=== PATIENT | male | born 1970 | race Caucasian/White ===

== ENCOUNTER 2021-12-24 10:05 | Emergency (ER) | payer OTHER, SELFPAY ==
[2021-12-24] VITALS (17 sets, daily range): BP systolic 143–172; BP diastolic 70–91; PULSE 73–97; RESP 14–23; TEMP 36.2; O2SAT 97–100; BMI 41.0
--- NOTE | 2021-12-24 10:41 | ED_ITS ---
HPI - General Adult General Chief complaint: Shortness of Breath/Dyspnea Stated complaint: sob Time Seen by Provider: 12/24/21 10:35 Source: patient Mode of arrival: Ambulatory Limitations: no limitations History of Present Illness HPI narrative: Patient is a 51-year-old male. Approximately 8 years ago he was diagnosed with a right lower extremity DVT and subsequent pulmonary embolism. He was on Lovenox and Coumadin for period of time but is now just on aspirin. He states that there was not a specific etiology for the blood clot. Has not had any issues with it since then. No underlying lung pathology. He states that last evening he started to develop left-sided chest discomfort. Had did radiate to his back. He did have quite a bit of burping. He thought that maybe this helped the symptoms somewhat. It was worse when he was lying down. Not worse with palpation. He went to an outside walk-in clinic and given his history was sent to the emergency department for further evaluation. He is having some shortness of breath. He states this feels different than his prior DVT. Related Data Allergies Allergy/AdvReac Type Severity Reaction Status Date / Time lorazepam [LORAZEPAM] AdvReac Severe STATES Verified 12/24/21 10:43 THAT IT CAUSED DECREASE IN BREATHING Review of Systems Constitutional Constitutional: Denies fever(s) Cardiovascular Cardiovascular: Reports as per HPI and Reports system reviewed and no additional complaints, except as documented Respiratory Respiratory: Reports as per HPI and Reports system reviewed and no additional complaints, except as documented Gastrointestinal Gastrointestinal: Denies abdominal pain, Reports belching, Denies change in bowel habits and Denies vomiting Musculoskeletal Musculoskeletal: Reports system reviewed and no additional complaints, except as documented Integumentary/Breasts Skin/Breast: Reports system reviewed and no additional complaints, except as documented Neurologic Neurologic: Reports system reviewed and no additional complaints, except as documented Hematologic/Lymphatic On Anticoagulants: No Patient History Medical History DVT (deep venous thrombosis) Pulmonary embolism Social History Smoking Status: Never smoker Exam Initial Vital Signs Initial Vital Signs: Vital Signs Pulse Rate 81 12/24/21 10:22 Respiratory Rate 16 12/24/21 10:22 Blood Pressure 164/91 H 12/24/21 10:22 Pulse Oximetry 100 12/24/21 10:22 [facility] Head: normal to inspection and normocephalic Resp Effort & Inspection: normal respiratory effort Auscultation: clear to auscultation bilaterally Cardio Rate: regular rate Rhythm: regular rhythm GI Inspection: normal to inspection Palpation: No tender Skin General: no rashes or lesions noted Neuro General: patient alert, patient awake and moves all extremities Extrem General: normal to inspection and capillary refill normal Psych Appearance: grossly normal and well kempt Course Orders Ordered: ED Orders 12/24/21 10:15 Measure peak expiratory flow ONCE RT Consult Eval and Treat Now 12/24/21 10:30 Complete Blood Count AUTO DIFF Stat Comprehensive Metabolic Panel Stat Lactate (Lactic Acid) Stat NT-proBNP (BNP-Adult 18+) Stat 12/24/21 10:31 EKG-12 Lead Stat 12/24/21 11:54 CT angio chest PE protocol Stat 12/24/21 12:11 COVID19 -Nasal swab/Pre-Proc Stat 12/24/21 12:27 Troponin & CK Cardiac Panel Stat 12/24/21 13:06 Partial Thromboplastin Time Stat 12/24/21 14:05 EC echo doppler complete Stat 12/24/21 19:00 PTT [Partial Thromboplastin Time] Q6H 12/25/21 01:00 PTT [Partial Thromboplastin Time] Q6H 12/25/21 07:00 PTT [Partial Thromboplastin Time] Q6H 12/25/21 13:00 PTT [Partial Thromboplastin Time] Q6H Heparin Sodium/Dextrose (Heparin Drip) 25,000 unit in 500 mls @ 20 mls/hr IV CONT YVES; Protocol Last Admin: 12/24/21 13:32 Dose: 1,000 units/hr, 20 mls/hr Documented by: AMANDA Discontinued Medications Heparin Sodium (Porcine) (Heparin 5,000 Unit/Ml Vial) 5,000 unit IV NOW ONE Stop: 12/24/21 12:58 Last Admin: 12/24/21 13:32 Dose: 5,000 unit Documented by: AMANDA Nitroglycerin (Nitroglycerin Oint 1 Inch/Gm Oint...G.) 0.5 inch TOP NOW ONE Stop: 12/24/21 12:59 Last Admin: 12/24/21 13:28 Dose: 0.5 inch Documented by: AMANDA Pantoprazole Sodium (Pantoprazole 40 Mg Vial) 40 mg IV NOW ONE Stop: 12/24/21 10:43 Last Admin: 12/24/21 11:14 Dose: 40 mg Documented by: AMANDA Vital Signs Vital signs: Vital Signs - 8 hr 12/24/21 10:22 12/24/21 10:30 12/24/21 10:44 Temperature 97.2 F L Pulse Rate 81 91 H 83 Respiratory Rate 16 20 23 Blood Pressure 164/91 H 156/84 H 164/91 H Pulse Oximetry 100 100 100 12/24/21 11:00 12/24/21 11:30 12/24/21 12:00 Temperature Pulse Rate 75 74 78 Respiratory Rate 14 18 19 Blood Pressure 154/75 H 166/88 H Pulse Oximetry 99 100 98 12/24/21 12:15 12/24/21 12:30 12/24/21 13:00 Temperature Pulse Rate 81 73 78 Respiratory Rate 19 14 19 Blood Pressure 172/80 H 164/80 H Pulse Oximetry 100 98 100 12/24/21 13:28 12/24/21 13:30 12/24/21 14:02 Temperature Pulse Rate 97 H 86 81 Respiratory Rate 23 Blood Pressure 164/80 H 159/80 H 159/74 H Pulse Oximetry 100 100 12/24/21 14:30 12/24/21 15:00 12/24/21 15:30 Temperature Pulse Rate 87 81 85 Respiratory Rate 20 14 20 Blood Pressure Pulse Oximetry 97 98 99 12/24/21 15:37 Temperature Pulse Rate 85 Respiratory Rate 17 Blood Pressure 147/70 H Pulse Oximetry 99 Medical Decision Making Lab Data Lab results reviewed: Yes I reviewed the patient's lab results. Result diagrams: 12/24/21 10:30 12/24/21 10:30 Labs: Lab Results 12/24/21 12/24/21 12/24/21 Range/Units 10:30 10:30 10:30 WBC 11.5 H (4.5-11.0) X10^3/uL RBC 5.61 (4.5-5.9) X10^6/uL Hgb 16.0 (13.5-17.5) g/dL Hct 47.0 (41-53) % MCV 83.7 (80-100) fL MCH 28.5 (26-34) PG MCHC 34.1 (30-36) % RDW 12.9 (11.6-14.8) % Plt Count 401 H (150-400) X10^3/uL Neut % (Auto) 75.6 H (50-75) % Lymph % (Auto) 16.0 L (25-40) % [place] % (Auto) 7.6 (3-14) % Eos % (Auto) 0.2 L (2-4) % Baso % (Auto) 0.6 (0-2) % Neut # (Auto) 8700 H (9110-4605) /uL Lymph # (Auto) 1800 (9916-5058) /uL [place] # (Auto) 900 (0-900) /uL Eos # (Auto) 0 (0-450) /uL Baso # (Auto) 100 (0-100) /uL APTT (26.4-36.2) SECONDS Sodium 136 L (137-145) mmol/L Potassium 3.6 (3.4-5.1) mmol/L Chloride 97 L (98-107) mmol/L Carbon Dioxide 27 (22-32) mmol/L BUN 9 (9-20) mg/dL Creatinine 0.60 L (0.66-1.25) mg/dL Estimated GFR > 60.0 (>60) mL/min BUN/Creatinine Ratio 15.0 (6-22) Glucose 318 H (70-100) mg/dL Lactate 2.1 (0.7-2.1) mmol/L Calcium 9.7 (8.4-10.2) mg/dL Total Bilirubin 0.8 (0.2-1.3) mg/dL AST 142 H (17-59) IU/L ALT 26 (<50) IU/L Alkaline Phosphatase 92 (38-126) U/L Total Creatine Kinase (55-170) U/L CK-MB (CK-2) (<2.37) ng/mL CK-MB (CK-2) Rel Index (1.5-5.0) % Troponin I (0.01-0.034) ng/mL NT-Pro-B Natriuret Pep (<125) pg/mL Total Protein 7.8 (6.3-8.2) g/dL Albumin 4.3 (3.5-5.0) g/dL Globulin 3.5 (1.7-4.1) g/dL Albumin/Globulin Ratio 1.2 (1.0-2.8) SARS-CoV-2 (PCR) (Negative) 12/24/21 12/24/21 12/24/21 Range/Units 10:30 12:11 12:27 WBC (4.5-11.0) X10^3/uL RBC (4.5-5.9) X10^6/uL Hgb (13.5-17.5) g/dL Hct (41-53) % MCV (80-100) fL MCH (26-34) PG MCHC (30-36) % RDW (11.6-14.8) % Plt Count (150-400) X10^3/uL Neut % (Auto) (50-75) % Lymph % (Auto) (25-40) % [place] % (Auto) (3-14) % Eos % (Auto) (2-4) % Baso % (Auto) (0-2) % Neut # (Auto) (5593-7787) /uL Lymph # (Auto) (3652-2613) /uL [place] # (Auto) (0-900) /uL Eos # (Auto) (0-450) /uL Baso # (Auto) (0-100) /uL APTT (26.4-36.2) SECONDS Sodium (137-145) mmol/L Potassium (3.4-5.1) mmol/L Chloride (98-107) mmol/L Carbon Dioxide (22-32) mmol/L BUN (9-20) mg/dL Creatinine (0.66-1.25) mg/dL Estimated GFR (>60) mL/min BUN/Creatinine Ratio (6-22) Glucose (70-100) mg/dL Lactate (0.7-2.1) mmol/L Calcium (8.4-10.2) mg/dL Total Bilirubin (0.2-1.3) mg/dL AST (17-59) IU/L ALT (<50) IU/L Alkaline Phosphatase (38-126) U/L Total Creatine Kinase 1255 H (55-170) U/L CK-MB (CK-2) 44.90 H (<2.37) ng/mL CK-MB (CK-2) Rel Index 3.6 (1.5-5.0) % Troponin I 12.200 H* (0.01-0.034) ng/mL NT-Pro-B Natriuret Pep 264 H (<125) pg/mL Total Protein (6.3-8.2) g/dL Albumin (3.5-5.0) g/dL Globulin (1.7-4.1) g/dL Albumin/Globulin Ratio (1.0-2.8) SARS-CoV-2 (PCR) Negative (Negative) 12/24/21 12/24/21 Range/Units 13:06 13:06 WBC (4.5-11.0) X10^3/uL RBC (4.5-5.9) X10^6/uL Hgb (13.5-17.5) g/dL Hct (41-53) % MCV (80-100) fL MCH (26-34) PG MCHC (30-36) % RDW (11.6-14.8) % Plt Count (150-400) X10^3/uL Neut % (Auto) (50-75) % Lymph % (Auto) (25-40) % [place] % (Auto) (3-14) % Eos % (Auto) (2-4) % Baso % (Auto) (0-2) % Neut # (Auto) (8805-9208) /uL Lymph # (Auto) (0528-6026) /uL [place] # (Auto) (0-900) /uL Eos # (Auto) (0-450) /uL Baso # (Auto) (0-100) /uL APTT 34 (26.4-36.2) SECONDS Sodium (137-145) mmol/L Potassium (3.4-5.1) mmol/L Chloride (98-107) mmol/L Carbon Dioxide (22-32) mmol/L BUN (9-20) mg/dL Creatinine (0.66-1.25) mg/dL Estimated GFR (>60) mL/min BUN/Creatinine Ratio (6-22) Glucose (70-100) mg/dL Lactate 1.8 (0.7-2.1) mmol/L Calcium (8.4-10.2) mg/dL Total Bilirubin (0.2-1.3) mg/dL AST (17-59) IU/L ALT (<50) IU/L Alkaline Phosphatase (38-126) U/L Total Creatine Kinase (55-170) U/L CK-MB (CK-2) (<2.37) ng/mL CK-MB (CK-2) Rel Index (1.5-5.0) % Troponin I (0.01-0.034) ng/mL NT-Pro-B Natriuret Pep (<125) pg/mL Total Protein (6.3-8.2) g/dL Albumin (3.5-5.0) g/dL Globulin (1.7-4.1) g/dL Albumin/Globulin Ratio (1.0-2.8) SARS-CoV-2 (PCR) (Negative) Imaging Data CT scan - chest: Radiologist's Impression: [address] [address] [address] Scan Report Signed Patient: Pollo Faye MR#: [id number] : 1970 Acct:[id number] Age/Sex: 51 / M Date of Service: 12/24/21 Loc: ED Accession Number: [id number] ?? Procedure: CT angio chest PE protocol Ordering Provider: Trung Trevino D.O. PROCEDURE:? CT ANGIO CHEST PE PROTOCOL ? INDICATIONS:? Chest pain, shortness of breath, tachycardia ? TECHNIQUE:? After the administration of intravenous contrast, 2 mm thick sections acquired from the pulmonary apices to the posterior costophrenic angles.? 3-dimensional maximum intensity projection (MIP) coronal and sagittal reformats were then acquired through the thorax.? For radiation dose reduction, the following was used:? automated exposure control, adjustment of mA and/or kV according to patient size.? ? COMPARISON:? [facility], , CHEST 1 VIEW, 09/13/2015, 16:22. ? FINDINGS:? Image quality:? Excellent.? ? Pulmonary arteries:? Pulmonary arteries are normal in size, and demonstrate no intraluminal filling defects to suggest central pulmonary embolism.? ? Lungs and pleura:? There is focal consolidation seen involving the subpleural lesion of the right lower lobe, measuring 2.2 cm.? Also within the right lower lobe, there is a spiculated appearing nodule seen that measures 9 mm, as on series 6, image 159.? No pleural effusions or pneumothorax.? Central and peripheral airways are patent.? ? Mediastinum:? Heart size is normal, without pericardial effusion.? Mild coronary artery calcification can be seen.? No mediastinal or hilar adenopathy.? Thoracic aorta is normal in caliber and enhancement.? Esophagus is normal in caliber.? There is a small hiatal hernia.? ? Bones and chest wall:? No suspicious bony lesions.? Age-appropriate bony degenerative changes are seen.? Accentuated thoracic kyphosis is seen.? ? Ribs and thoracic spine appear intact throughout.? Thyroid gland demonstrates no significant abnormality.? No axillary or supraclavicular adenopathy.? ? Abdomen:? Visualized upper abdominal solid organs appear normal in the early arterial phase of enhancement.? IMPRESSION:? Negative for pulmonary embolism. ? There is a 2.2 cm area subpleural consolidation seen within the right lower lobe and there is a 9 mm right lower lobe spiculated nodule.? Please consider a three- month follow-up noncontrast chest CT for further evaluation of these findings. ? Incidental note is made of: Mild coronary artery calcification Small hiatal hernia ? Dictated by: Juan Carlos Dominguez M.D. on 12/24/2021 at 11:15 ? ? Approved by: Juan Carlos Dominguez M.D. on 12/24/2021 at 11:19 echo: Radiologist's Impression: [place] [address] Echocardiography Report Signed Patient: Pollo Faye MR#: [id number] : 1970 Acct:[id number] Age/Sex: 51 / M Date of Service: 12/24/21 Loc: ED Accession Number: [id number] ?? Procedure: EC echo doppler complete Ordering Provider: Trung Trevino D.O. ? [facility]---------+? [facility]? +---------+ : ? :? [address] [place] [address]. ? : ? : : ? :? [place], [place] ? : ? : : ? :? [id number] ? : ? : : ? : ? Phone: [phone] : ? : [phone]? [phone]? +---------+ ? Echocardiogram Report + + :Name: POLLO FAYE ? ? ? Study Date: 12/24/2021 ? Height: 67 in? : :Hospital ? ? ReadingLocation: ? Weight: 262 lb : : ? Gender: Male ? BSA: 2.3 m2? ? : :: 1970? Age: 51 yrs? BP: 159/74 mmHg: :Reason For Study: NSTEMI ? : :Ordering Physician: FLOR,? : :TRUNG? Performed By: Elisabet Aiken? : :Referring: TRUNG TREVINO ? : + + Interpretation Summary The left ventricle is normal in size. Left ventricular systolic function appears normal without focal wall motion abnormalities. The ejection fraction is estimated to be 60-65%. Diastolic parameters suggest probable normal left ventricular diastolic function and normal filling pressures. ? The right ventricle is normal in size and function. Pulmonary artery pressures cannot be estimated because of the lack of a measurable TR jet velocity but the IVC suggests a CVP of around 3 mmHg. ? The left atrium is mildly dilated. Right atrial size is normal. ? There is mild mitral regurgitation. There is no other significant valvular heart disease. ? The aortic root is normal size. ? Procedure: ? A two-dimensional transthoracic echocardiogram with color flow and Doppler was performed. The study quality was technically adequate. There is no prior echocardiogram noted for this patient. The patient was in sinus rhythm with heart rates between 78-94 bpm during the exam. Left Ventricle: ? The left ventricle is normal in size. Left ventricular wall thickness is mildly increased. Left ventricular systolic function appears normal without focal wall motion abnormalities. The ejection fraction is estimated to be 60-65%. Diastolic parameters suggest probable normal left ventricular diastolic function and normal filling pressures. Right Ventricle: ? The right ventricle is normal in size and function. Atria: ? The left atrium is mildly dilated. Right atrial size is normal. There is no Doppler evidence for an interatrial shunt. Mitral Valve: ? The mitral valve is normal in structure and function. There is mild mitral regurgitation. Aortic Valve: ? The aortic valve is trileaflet. The aortic valve opens well. There is no aortic valve stenosis. No aortic regurgitation is present. Tricuspid Valve: ? The tricuspid valve is normal in structure and function. There is trace tricuspid regurgitation. Pulmonary artery pressures cannot be estimated because of the lack of a measurable TR jet velocity but the IVC suggests a CVP of around 3 mmHg. Pulmonic Valve: ? The pulmonic valve leaflets are thin and pliable; valve motion is normal. There is no pulmonic valvular regurgitation. There is no other significant valvular heart disease. Great Vessels: ? The aortic root is normal size. The ascending aorta is at the upper limits of normal in size. The IVC is of normal diameter and collapses greater than 50% with a sniff. This suggests a low right atrial pressure of 3 mm Hg. Pericardium/ Pleura ? There is no pericardial effusion. There is no pleural effusion. ? MMode/2D Measurements & Calculations LVIDd: 3.9 cm? LVOT diam: 2.1 cm LVIDs: 2.7 cm? Ao root diam: 3.4 cm FS: 31.8 % ? asc Aorta Diam: 3.4 cm IVSd: 1.2 cm ? Ao Arch Diam (Prox Trans): 2.8 cm LVPWd: 1.0 cm LV coronado. diameter/BSA (cm/m^2): 1.7 LV sys. diameter/BSA (cm/m^2): 1.2 ? LA A2 area: 25.4 cm2 ? RA long axis: 5.2 cm LA A4 area: 22.1 cm2 ? RA area: 16.4 cm2 LA length (vol): 5.8 cm? RA vol: 43.7 ml LA vol: 81.5 ml? RA : 19.3 ml/m2 LA vol index: 35.9 ml/m2 ? IVC diam: 1.4 cm ? RVD1 (basal): 3.7 cm TAPSE: 2.5 cm ? Doppler Measurements & Calculations Ao V2 max: 122.5 cm/sec ? LVOT Max Elijah: 88.5 cm/sec Ao V2 mean: 81.6 cm/sec ? LV V1 max P.1 mmHg Ao max P.0 mmHg ? LV V1 VTI: 17.7 cm Ao mean P.0 mmHg? NANCY(I,D): 2.8 cm2 Ao V2 VTI: 21.7 cm? NANCY(V,D): 2.5 cm2 ? sev ratio: 0.81 ? NANCY indexed to BSA (cm^2/m^2): 1.3 ? MV E max elijah: 66.6 cm/sec ? PA V2 max: 90.7 cm/sec MV A max elijah: 71.1 cm/sec ? PA V2 mean: 63.6 cm/sec MV E/A: 0.94? PA mean P.8 mmHg Med Peak E' Elijah: 9.0 cm/sec ? ? ? PA pr(Accel): 29.3 mmHg E/E' med: 7.4 Lat Peak E' Elijah: 7.1 cm/sec E/E' lat: 9.4 E/e' average: 8.4 MV dec time: 0.19 sec ? SV(LVOT): 61.7 ml ? Reading Physician:03:59 PM ECG Data Attestation: I personally reviewed and interpreted this ECG as follows: Interpretation: Sinus rhythm Ventricular rate is 77 Normal axis Normal QRS Normal QTC No ST T wave changes MDM Narrative Medical decision making narrative: Symptoms since last evening. EKG unremarkable. CT scan does show no pulmonary embolism but does have pulmonary nodules. Patient was informed of this. He was informed that he needs follow-up with his primary doctor. Troponin elevated. Was started on heparin. He did take an aspirin prior to arrival here in the ER. Discussed the case with hospitalist at [facility] who accepts the patient in transfer. Patient is in need of transfer in order to be evaluated by Cardiology. Patient expressed understanding and agreement this. Patient is stable for transport. Critical Care Time Critical Care Time Critical Care Time: Yes Total Critical Care Time: 35 Attestation: The high probability of a clinically significant, sudden or life threatening deterioration of the cardiovascular system(s) required my full and direct attention, intervention and personal management. The aggregate critical care time was [35] minutes. This time is in addition to time spent performing reported procedures but includes the following: [x] Data Review and interpretation []x Patient assessment and monitoring of vital signs [x] Documentation [x] Medication orders and management Discharge Plan Departure Patient Disposition: [facility] Clinical Impression: Non-ST elevation NM (NSTEMI), Pulmonary nodule
[2021-12-24 10:53] LABS: Add Manual Diff / Slide Review NO; Basophils Absolute Auto 100 /uL (0-100); Basophils Percent Auto 0.6 % (0-2); Eosinophils Absolute Auto 0 /uL (0-450); Eosinophils Percent Auto 0.2 % (2-4); Lymphocytes Absolute Auto 1800 /uL (1100-4500); Mean Corpuscular HGB Conc 34.1 % (30-36); Mean Corpuscular Hemoglobin 28.5 PG (26-34); Mean Corpuscular Volume 83.7 fL (80-100); Monocytes Absolute Auto 900 /uL (0-900); Monocytes Percent Auto 7.6 % (3-14); Neutrophils Absolute Auto 8700 /uL (1500-7000); Neutrophils Percent Auto 75.6 % (50-75); Platelet Count 401 X10^3/uL (150-400); Red Blood Cell Count 5.61 X10^6/uL (4.5-5.9); Red Cell Distribution Width 12.9 % (11.6-14.8); White Blood Cell Count 11.5 X10^3/uL (4.5-11.0)
[2021-12-24 11:10] LABS: Alanine Aminotransferase 26 IU/L (<50); Albumin 4.3 g/dL (3.5-5.0); Albumin Globulin Ratio 1.2 (1.0-2.8); Alkaline Phosphatase 92 U/L (38-126); Aspartate Aminotransferase 142 IU/L (17-59); Bilirubin Total 0.8 mg/dL (0.2-1.3); Blood Urea Nitrogen 9 mg/dL (9-20); Calcium 9.7 mg/dL (8.4-10.2); Carbon Dioxide 27 mmol/L (22-32); Chloride 97 mmol/L (98-107); Estimated Glomerular Filt Rate > 60.0 mL/min (>60); Globulin 3.5 g/dL (1.7-4.1); Glucose 318 mg/dL (70-100); HEMOLYSIS < 15 (0-50); Potassium 3.6 mmol/L (3.4-5.1); Sodium 136 mmol/L (137-145); Total Protein 7.8 g/dL (6.3-8.2)
[2021-12-24 11:13] LABS: Lactate (Lactic Acid) 2.1 mmol/L (0.7-2.1)
[2021-12-24] MEDS: PANTOPRAZOLE 40 MG VIAL IV (11:14)
[2021-12-24 11:24] LABS: NT-proBNP (BNP-Adult 18+) 264 pg/mL (<125)
--- NOTE | 2021-12-24 11:28 | PC.NURSE ---
Patient resting with spouse at bedside; vss; denies any needs at this time. Lungs CTA. Awaiting CT scan to be completed.
--- NOTE | 2021-12-24 11:54 | DI.CT.S_ITS ---
PROCEDURE: CT ANGIO CHEST PE PROTOCOL INDICATIONS: Chest pain, shortness of breath, tachycardia TECHNIQUE: After the administration of intravenous contrast, 2 mm thick sections acquired from the pulmonary apices to the posterior costophrenic angles. 3-dimensional maximum intensity projection (MIP) coronal and sagittal reformats were then acquired through the thorax. For radiation dose reduction, the following was used: automated exposure control, adjustment of mA and/or kV according to patient size. COMPARISON: [facility], , CHEST 1 VIEW, 09/13/2015, 16:22. FINDINGS: Image quality: Excellent. Pulmonary arteries: Pulmonary arteries are normal in size, and demonstrate no intraluminal filling defects to suggest central pulmonary embolism. Lungs and pleura: There is focal consolidation seen involving the subpleural lesion of the right lower lobe, measuring 2.2 cm. Also within the right lower lobe, there is a spiculated appearing nodule seen that measures 9 mm, as on series 6, image 159. No pleural effusions or pneumothorax. Central and peripheral airways are patent. Mediastinum: Heart size is normal, without pericardial effusion. Mild coronary artery calcification can be seen. No mediastinal or hilar adenopathy. Thoracic aorta is normal in caliber and enhancement. Esophagus is normal in caliber. There is a small hiatal hernia. Bones and chest wall: No suspicious bony lesions. Age-appropriate bony degenerative changes are seen. Accentuated thoracic kyphosis is seen. Ribs and thoracic spine appear intact throughout. Thyroid gland demonstrates no significant abnormality. No axillary or supraclavicular adenopathy. Abdomen: Visualized upper abdominal solid organs appear normal in the early arterial phase of enhancement. IMPRESSION: Negative for pulmonary embolism. There is a 2.2 cm area subpleural consolidation seen within the right lower lobe and there is a 9 mm right lower lobe spiculated nodule. Please consider a three-month follow-up noncontrast chest CT for further evaluation of these findings. Incidental note is made of: Mild coronary artery calcification Small hiatal hernia Dictated by: Juan Carlos Dominguez M.D. on 12/24/2021 at 11:15 Approved by: Juan Carlos Dominguez M.D. on 12/24/2021 at 11:19
[2021-12-24 12:37] LABS: Creatine Kinase 1255 U/L (55-170)
[2021-12-24 12:48] LABS: Reflexed Lactate in 2 Hours Y
[2021-12-24 12:49] LABS: COVID19 -Nasal RAPID Negative (Negative)
[2021-12-24 12:52] LABS: CKMB % Relative Index 3.6 % (1.5-5.0)
[2021-12-24] MEDS: NITROGLYCERIN OINT 1 INCH/GM OINT...G. 0.5 INCH TOP (13:28)
[2021-12-24] MEDS: HEPARIN DRIP 25,000 UNIT/500 ML IV.SOLN 20 UNIT IV (13:32)
[2021-12-24] MEDS: HEPARIN 5,000 UNIT/ML VIAL 5000 UNIT IV (13:32)
[2021-12-24 13:42] LABS: PTT Partial Thromboplastin Tim 34 SECONDS (26.4-36.2)
[2021-12-24 13:47] LABS: Lactate 2HR (Lactic Acid Rflx) 1.8 mmol/L (0.7-2.1)
--- NOTE | 2021-12-24 14:05 | DI.ECHO.S_ITS ---
[facility]---------+ [facility] +---------+ : : [address] : : : : [id number] : : : : Phone: [phone] +---------+ Echocardiogram Report + + :Name: POLLO POSEY Study Date: 12/24/2021 Height: 67 in : [facility] Weight: 262 lb : : Gender: Male BSA: 2.3 m2 : :: 1970 Age: 51 yrs BP: 159/74 mmHg: :Reason For Study: NSTEMI : :Ordering Physician: FLOR, : :LETICIA Performed By: Elisabet Aiken : :Referring: LETICIA RAY : + + Interpretation Summary The left ventricle is normal in size. Left ventricular systolic function appears normal without focal wall motion abnormalities. The ejection fraction is estimated to be 60-65%. Diastolic parameters suggest probable normal left ventricular diastolic function and normal filling pressures. The right ventricle is normal in size and function. Pulmonary artery pressures cannot be estimated because of the lack of a measurable TR jet velocity but the IVC suggests a CVP of around 3 mmHg. The left atrium is mildly dilated. Right atrial size is normal. There is mild mitral regurgitation. There is no other significant valvular heart disease. The aortic root is normal size. Procedure: A two-dimensional transthoracic echocardiogram with color flow and Doppler was performed. The study quality was technically adequate. There is no prior echocardiogram noted for this patient. The patient was in sinus rhythm with heart rates between 78-94 bpm during the exam. Left Ventricle: The left ventricle is normal in size. Left ventricular wall thickness is mildly increased. Left ventricular systolic function appears normal without focal wall motion abnormalities. The ejection fraction is estimated to be 60-65%. Diastolic parameters suggest probable normal left ventricular diastolic function and normal filling pressures. Right Ventricle: The right ventricle is normal in size and function. Atria: The left atrium is mildly dilated. Right atrial size is normal. There is no Doppler evidence for an interatrial shunt. Mitral Valve: The mitral valve is normal in structure and function. There is mild mitral regurgitation. Aortic Valve: The aortic valve is trileaflet. The aortic valve opens well. There is no aortic valve stenosis. No aortic regurgitation is present. Tricuspid Valve: The tricuspid valve is normal in structure and function. There is trace tricuspid regurgitation. Pulmonary artery pressures cannot be estimated because of the lack of a measurable TR jet velocity but the IVC suggests a CVP of around 3 mmHg. Pulmonic Valve: The pulmonic valve leaflets are thin and pliable; valve motion is normal. There is no pulmonic valvular regurgitation. There is no other significant valvular heart disease. Great Vessels: The aortic root is normal size. The ascending aorta is at the upper limits of normal in size. The IVC is of normal diameter and collapses greater than 50% with a sniff. This suggests a low right atrial pressure of 3 mm Hg. Pericardium/ Pleura There is no pericardial effusion. There is no pleural effusion. MMode/2D Measurements & Calculations LVIDd: 3.9 cm LVOT diam: 2.1 cm LVIDs: 2.7 cm Ao root diam: 3.4 cm FS: 31.8 % asc Aorta Diam: 3.4 cm IVSd: 1.2 cm Ao Arch Diam (Prox Trans): 2.8 cm LVPWd: 1.0 cm LV coronado. diameter/BSA (cm/m^2): 1.7 LV sys. diameter/BSA (cm/m^2): 1.2 LA A2 area: 25.4 cm2 RA long axis: 5.2 cm LA A4 area: 22.1 cm2 RA area: 16.4 cm2 LA length (vol): 5.8 cm RA vol: 43.7 ml LA vol: 81.5 ml RA : 19.3 ml/m2 LA vol index: 35.9 ml/m2 IVC diam: 1.4 cm RVD1 (basal): 3.7 cm TAPSE: 2.5 cm Doppler Measurements & Calculations Ao V2 max: 122.5 cm/sec LVOT Max Elijah: 88.5 cm/sec Ao V2 mean: 81.6 cm/sec LV V1 max P.1 mmHg Ao max P.0 mmHg LV V1 VTI: 17.7 cm Ao mean P.0 mmHg NANCY(I,D): 2.8 cm2 Ao V2 VTI: 21.7 cm NANCY(V,D): 2.5 cm2 sev ratio: 0.81 NANCY indexed to BSA (cm^2/m^2): 1.3 MV E max elijah: 66.6 cm/sec PA V2 max: 90.7 cm/sec MV A max elijah: 71.1 cm/sec PA V2 mean: 63.6 cm/sec MV E/A: 0.94 PA mean P.8 mmHg Med Peak E' Elijah: 9.0 cm/sec PA pr(Accel): 29.3 mmHg E/E' med: 7.4 Lat Peak E' Elijah: 7.1 cm/sec E/E' lat: 9.4 E/e' average: 8.4 MV dec time: 0.19 sec SV(LVOT): 61.7 ml Reading Physician:03:59 PM
== END 2021-12-24 17:15 | disposition short-term general hospital (02) ==
PROVIDERS: Emergency Provider Emergency Medicine
DX: I21.4 Non-ST elevation (NSTEMI) myocardial infarction (principal); R91.1 Solitary pulmonary nodule; Z20.822 Contact with and (suspected) exposure to COVID-19
CPT/HCPCS: 36415; 71275; 80053; 82550; 82553; 83605; 83880; 84484; 85025; 85730; 87635; 93005; 93306; 96365; 96366; 96375; 96376; 99285; 99291; C9803; C9113; J1644

== ENCOUNTER → 2022-02-28 08:01 | Outpatient (CLI) | payer OTHER, SELFPAY ==
--- NOTE | 2022-02-28 | DI.ECHO.S_ITS ---
[facility] +---------+ [facility] +---------+ : : [address] : : : : [id number] : : : : Phone: [phone] +---------+ Echocardiogram Report + + :Name: POLLO POSEY Study Date: 02/28/2022 Height: 66.5 in: :[facility] ReadingLocation: Weight: 292 lb : : Gender: Male BSA: 2.4 m2 : :: 1970 Age: 52 yrs BP: 160/70 mmHg: :Reason For Study: VTACH, HEART FAILURE : : Performed By: Tasneem Sifuentes : :Referring: WOJCIECH AGUERO : + + Interpretation Summary The ejection fraction is estimated to be 55-60%. Left ventricular systolic function has mildly improved compared to the previous exam.There are still regional wall motion abnormalities as mentioned on priot echo but not as extensive. Overall the LVEF appears to be more dynamic. There is hypokinesis along the basal/mid anterolateral, most of the inferolateral segments and basal inferior segment.. All diastolic parameters are not assessed but based on limited data they suggest a restrictive filling pattern consistent with probable significantly elevated filling pressures. The right ventricle is normal in size and function. There is a pacemaker lead in the right ventricle. Pulmonary artery pressures cannot be estimated because of the lack of a measurable TR jet velocity but the IVC suggests a CVP of around 15 mmHg. The left atrium is severely dilated. The right atrium is mildly dilated. There is mild to moderate mitral regurgitation. Compared to the prior echo study, there has been an increase in the severity of mitral regurgitation. There is no other significant valvular heart disease. The aortic root is borderline dilated. Procedure: A two-dimensional transthoracic echocardiogram with color flow and Doppler was performed. The study quality was technically adequate. Comparison is made with the echocardiogram of 12/29/2021. The patient was in normal sinus rhythm during the exam. Left Ventricle: The left ventricle is normal in size and wall thickness. The ejection fraction is estimated to be 55-60%. Left ventricular systolic function has mildly improved compared to the previous exam. There is still regional wall motion abnormalities as mentioned on priot echo but not as extensive. Overall the LVEF appears to be more dynamic. There is hypokinesis along the basal/mid anterolateral, most of the inferolateral segments and basal inferior segment.. Diastolic parameters suggest a restrictive filling pattern consistent with probable significantly elevated filling pressures. Right Ventricle: The right ventricle is normal in size and function. There is a pacemaker lead in the right ventricle. Atria: The left atrium is severely dilated. The right atrium is mildly dilated. There is no Doppler evidence for an interatrial shunt. Mitral Valve: The mitral valve leaflets appear mildly thickened, but open well. There is mild to moderate mitral regurgitation. Compared to the prior echo study, there has been an increase in the severity of mitral regurgitation. Aortic Valve: The aortic valve is normal in structure and function. Tricuspid Valve: The tricuspid valve is normal in structure and function. Pulmonary artery pressures cannot be estimated because of the lack of a measurable TR jet velocity but the IVC suggests a CVP of around 15 mmHg. Pulmonic Valve: The pulmonic valve is normal in structure and function. There is a trace or physiologic amount of pulmonic regurgitation. There is no other significant valvular heart disease. Great Vessels: The aortic root is borderline dilated. The ascending aorta is normal in size. The aortic arch could not be visualized. The pulmonary artery is normal size. The IVC is dilated (diameter is greater than 2.1 cm) and it collapses less than 50% with a sniff. This suggests a high right atrial pressure of 15 mm Hg. Pericardium/ Pleura There is no pericardial effusion. There is no pleural effusion. MMode/2D Measurements & Calculations LVIDd: 5.7 cm LVOT diam: 2.3 cm LVIDs: 4.2 cm Ao root diam: 3.9 cm FS: 26.2 % asc Aorta Diam: 3.2 cm EPSS: 0.57 cm IVSd: 1.1 cm LVPWd: 0.47 cm LV coronado. diameter/BSA (cm/m^2): 2.4 LV sys. diameter/BSA (cm/m^2): 1.8 LA A2 area: 29.7 cm2 RA long axis: 5.6 cm LA A4 area: 34.1 cm2 RA area: 22.8 cm2 LA length (vol): 7.0 cm RA vol: 78.7 ml LA vol: 122.7 ml RA : 33.3 ml/m2 LA vol index: 51.9 ml/m2 IVC diam: 2.6 cm RVD1 (basal): 4.5 cm TAPSE: 2.5 cm Doppler Measurements & Calculations Ao V2 max: 128.3 cm/sec LVOT Max Elijah: 101.5 cm/sec Ao V2 mean: 88.2 cm/sec LV V1 max P.1 mmHg Ao max P.6 mmHg LV V1 VTI: 21.2 cm Ao mean P.4 mmHg NANCY(I,D): 3.5 cm2 Ao V2 VTI: 24.9 cm NANCY(V,D): 3.3 cm2 sev ratio: 0.85 NANCY indexed to BSA (cm^2/m^2): 1.5 MV E max elijah: 91.0 cm/sec MV P1/2t max elijah: 91.5 cm/sec MV A max elijah: 32.8 cm/sec MVA(P1/2t): 6.1 cm2 MV E/A: 2.8 Med Peak E' Elijah: 6.2 cm/sec E/E' med: 14.7 Lat Peak E' Elijah: 5.2 cm/sec E/E' lat: 17.5 E/e' average: 16.1 MV P1/2t: 35.9 msec SV(LVOT): 87.7 ml Reading Physician:08:50 AM
== END ==
PROVIDERS: Referring Provider Internal Medicine Cardiovascular Disease; Visit Provider Internal Medicine Cardiovascular Disease
DX: I34.0 Nonrheumatic mitral (valve) insufficiency (principal); I47.2 Ventricular tachycardia; I50.22 Chronic systolic (congestive) heart failure; Z95.0 Presence of cardiac pacemaker
CPT/HCPCS: 93306

== ENCOUNTER → 2025-02-17 15:59 | Outpatient (CLI) | payer BC, SELFPAY ==
[2025-02-17 16:47] LABS: Influenza A - CEPHEID Flu A NEGATIVE (NEGATIVE); Influenza B - CEPHEID Flu B NEGATIVE (NEGATIVE); Respiratory Syncytial Virus Negative (Negative)
[2025-02-17 17:18] LABS: COVID-19 CEPHEID 4-PLEX PCR Negative (Negative)
== END ==
PROVIDERS: Visit Provider Physician Assistant
DX: R06.02 Shortness of breath (principal)
CPT/HCPCS: 0241U

== ENCOUNTER → 2025-02-17 16:07 | Outpatient (CLI) | payer BC, SELFPAY ==
--- NOTE | 2025-02-17 16:11 | DI.RAD.S_ITS ---
PROCEDURE: XR CHEST 2V INDICATIONS: Flu-like symptom TECHNIQUE: 2 views of the chest were acquired. COMPARISON: [facility], , CHEST 1 VIEW, 09/13/2015, 16:22. FINDINGS: Surgical changes and devices: Left chest wall generator with cardiac leads. Lungs and pleura: Lungs are clear. No pleural effusions or pneumothorax. Peribronchial cuffing. Mediastinum: Mediastinal contours are normal. Heart size is normal. Bones and chest wall: No suspicious bony abnormalities. Soft tissues appear unremarkable. IMPRESSION: Peribronchial cuffing, typically indicating infectious or inflammatory bronchitis. Dictated by: Damion De La Fuente M.D. on 02/17/2025 at 16:21 Approved by: Damion De La Fuente M.D. on 02/17/2025 at 16:21
== END ==
LOC: RAD 16:10
PROVIDERS: Referring Provider Physician Assistant; Visit Provider Physician Assistant
DX: R05.9 Cough, unspecified (principal); R68.89 Other general symptoms and signs
CPT/HCPCS: 0241U; 71046